=== PATIENT | male | born 1965 | race Caucasian/White ===

== ENCOUNTER → 2024-02-03 09:34 | Outpatient (REF) | payer BC, SELFPAY ==
[2024-02-03 10:29] LABS: % Basophils 0.7 % (0-2); % Eosinophils 2.5 % (0-6); % Immature Granulocytes 0.3 % (0-0.5); % Lymphocytes 14.3 % (20.5-51.1); % Monocytes 10.5 % (1.7-9.3); % Neutrophils 71.7 % (42.2-75.2); Absolute Basophils 0.1 10^3/uL (0-0.2); Absolute Eosinophils 0.2 10^3/uL (0-0.7); Absolute Monocytes 0.7 10^3/uL (0.1-0.6); Absolute Neutrophils 4.9 10^3/uL (1.4-6.5); Hematocrit 38.9 % (39.0-52.0); Hemoglobin 13.4 g/dL (13.0-18.0); Mean Corp Hgb Conc. 34.4 g/dL (33.0-37.0); Mean Corpuscular Hgb 32.4 pg (27.0-31.0); Nucleated Red Blood Cells % 0 % (-); Platelet Count 164 10^3/uL (130-400); Red Blood Cell Count 4.14 10^6/uL (4.70-6.10); Red Cell Dist. Width 13.2 % (11.5-14.5); White Blood Cell Count 6.8 10^3/uL (4.8-10.8)
[2024-02-03 10:42] LABS: ALT (SGPT) 42 U/L (0-50); AST (SGOT) 57 U/L (17-59); Albumin 4.2 g/dl (3.5-5.0); Alkaline Phosphatase 103 U/L (38-126); Blood Urea Nitrogen 11 mg/dl (9-20); Calcium 9.6 mg/dl (8.4-10.2); Carbon Dioxide 25 mmol/L (22-30); Chloride 99 mmol/L (98-107); Glucose 166 mg/dl (70-99); Potassium 3.8 mmol/L (3.5-5.1); Sodium 131 mmol/L (135-145); Total Bilirubin 0.6 mg/dl (0.2-1.3); Total Cholesterol 177 mg/dl (50-199); Triglyceride 308 mg/dl (10-149); Uric Acid 8.3 mg/dl (3.5-8.5); Very Low Density Lipoprotein 61 mg/dl (0-30); eGFR > 60.00
[2024-02-03 10:47] LABS: HDL Cholesterol 98 mg/dl; LDL Cholesterol, Calculated 18 mg/dl
== END ==
LOC: REG 09:34
PROVIDERS: ATTENDING PHYSICIAN Physician Assistant
DX: M10.9 Gout, unspecified (principal); I10 Essential (primary) hypertension; K21.9 Gastro-esophageal reflux disease without esophagitis; I42.2 Other hypertrophic cardiomyopathy; E78.1 Pure hyperglyceridemia
CPT/HCPCS: 36415; 80053; 80061; 84550; 85025

== ENCOUNTER → 2024-03-19 11:49 | Outpatient (REF) | payer BC, SELFPAY ==
[2024-03-19 13:37] LABS: PSA, Total - Diagnostic < 0.06 ng/ml (0.0-4.0)
== END ==
LOC: REG 11:49
PROVIDERS: ATTENDING PHYSICIAN Family Medicine Geriatric Medicine; FAMILY PHYSICIAN Physician Assistant
DX: C61 Malignant neoplasm of prostate (principal); Z79.818 Long term (current) use of other agents affecting estrogen receptors and estrogen levels
CPT/HCPCS: 36415; 84153; 84270; 84402; 84403

== ENCOUNTER → 2024-05-20 09:03 | Outpatient (REF) | payer BC, SELFPAY | LOC: RCS 09:03 | PROVIDERS: ATTENDING PHYSICIAN Internal Medicine Cardiovascular Disease; FAMILY PHYSICIAN Family Medicine | DX: I42.2 Other hypertrophic cardiomyopathy (principal); I10 Essential (primary) hypertension | CPT/HCPCS: 93306 ==

== ENCOUNTER → 2024-09-17 12:12 | Outpatient (REF) | payer BC, SELFPAY ==
[2024-09-17 15:10] LABS: PSA, Total - Diagnostic < 0.06 ng/ml (0.0-4.0)
== END ==
LOC: REG 12:12
PROVIDERS: ATTENDING PHYSICIAN Family Medicine Geriatric Medicine; FAMILY PHYSICIAN Physician Assistant
DX: C61 Malignant neoplasm of prostate (principal); Z79.818 Long term (current) use of other agents affecting estrogen receptors and estrogen levels
CPT/HCPCS: 36415; 84153; 84270; 84402; 84403

== ENCOUNTER → 2025-01-10 15:23 | Outpatient (REF) | payer BC, SELFPAY ==
[2025-01-10 16:22] LABS: ALT (SGPT) 41 U/L (0-50); AST (SGOT) 42 U/L (17-59); Albumin 4.4 g/dl (3.5-5.0); Alkaline Phosphatase 84 U/L (38-126); Blood Urea Nitrogen 15 mg/dl (9-20); Calcium 9.1 mg/dl (8.4-10.2); Carbon Dioxide 24 mmol/L (22-30); Chloride 105 mmol/L (98-107); Glucose 115 mg/dl (70-99); Potassium 3.7 mmol/L (3.5-5.1); Sodium 141 mmol/L (135-145); Total Bilirubin 0.6 mg/dl (0.2-1.3); Total Protein 6.9 g/dl (6.3-8.2); eGFR > 60.00
[2025-01-10 17:25] LABS: Urine Albumin Negative (Neg - Trace); Urine Bilirubin Negative (Negative); Urine Character Clear (Clear); Urine Color Yellow; Urine Glucose 1+ (Negative); Urine Ketone Negative (Negative); Urine Leukocyte Negative (Negative); Urine Nitrite Negative (Negative); Urine Occult Blood Negative (Negative); Urine Specific Gravity 1.015 (<1.030); Urine Urobilinogen Negative (Neg - 1+)
== END ==
LOC: REG 15:23
PROVIDERS: ATTENDING PHYSICIAN Specialist; FAMILY PHYSICIAN Family Medicine
DX: R31.9 Hematuria, unspecified (principal)
CPT/HCPCS: 36415; 80053; 81003

== ENCOUNTER → 2025-01-20 07:29 | Outpatient (REF) | payer BC, SELFPAY | LOC: RAD 07:29 | PROVIDERS: ATTENDING PHYSICIAN Specialist; FAMILY PHYSICIAN Family Medicine | DX: R31.9 Hematuria, unspecified (principal) | CPT/HCPCS: 74178; Q9967 ==

== ENCOUNTER 2025-02-20 06:22 | Day surgery (SDC) | payer BC, SELFPAY ==
[2025-02-17 10:29] VITALS: BMI 30.8
[2025-02-17 11:37] LABS: Hematocrit 39.6 % (39.0-52.0); Hemoglobin 14.1 g/dL (13.0-18.0); Mean Corp Hgb Conc. 35.6 g/dL (33.0-37.0); Mean Corpuscular Hgb 33.4 pg (27.0-31.0); Mean Corpuscular Volume 93.8 fL (80.0-94.0); Mean Platelet Volume 9.4 fL (7.4-10.4); Platelet Count 213 10^3/uL (130-400); Red Blood Cell Count 4.22 10^6/uL (4.70-6.10); Red Cell Dist. Width 12.7 % (11.5-14.5); White Blood Cell Count 6.3 10^3/uL (4.8-10.8)
[2025-02-20] VITALS (10 sets, daily range): BP systolic 102–145; BP diastolic 72–91; BMI 31.7
[2025-02-20] MEDS: NORMOSOL-R/PLASMALYTE-A 1000 IV (11:03)
[2025-02-20] MEDS: DETROL LA 4 MG PO (14:33)
== END 2025-02-20 16:30 | disposition home or self-care (01) ==
LOC: SDS 06:22
PROVIDERS: ATTENDING PHYSICIAN Specialist; FAMILY PHYSICIAN Physician Assistant
DX: N32.0 Bladder-neck obstruction (principal); N30.41 Irradiation cystitis with hematuria; N35.919 Unspecified urethral stricture, male, unspecified site; Y84.2 Radiological procedure and radiotherapy as the cause of abnormal reaction of the patient, or of later complication, without mention of misadventure at the time of the procedure
CPT/HCPCS: 52354; 36415; 74018; 76000; 85027; 93005

== ENCOUNTER → 2025-05-26 12:12 | Outpatient (REF) | payer BC, SELFPAY ==
[2025-05-26 14:02] LABS: PSA, Total - Diagnostic < 0.06 ng/ml (0.0-4.0)
== END ==
LOC: REG 12:12
PROVIDERS: ATTENDING PHYSICIAN Specialist; FAMILY PHYSICIAN Family Medicine
DX: C61 Malignant neoplasm of prostate (principal)
CPT/HCPCS: 36415; 84153

== ENCOUNTER → 2025-06-06 08:25 | Outpatient (REF) | payer BC, SELFPAY | LOC: RAD 08:25 | PROVIDERS: ATTENDING PHYSICIAN Surgery; FAMILY PHYSICIAN Family Medicine | DX: Z01.818 Encounter for other preprocedural examination (principal) | CPT/HCPCS: 71046 ==

== ENCOUNTER → 2025-09-16 08:20 | Outpatient (REF) | payer BC, SELFPAY ==
[2025-09-16 09:45] LABS: Microalbumin, Random Urine 1.4 mg/dl (0.6-1.7)
[2025-09-16 10:01] LABS: ALT (SGPT) 45 U/L (0-50); AST (SGOT) 76 U/L (17-59); Albumin 4.0 g/dl (3.5-5.0); Alkaline Phosphatase 93 U/L (38-126); Blood Urea Nitrogen 8 mg/dl (9-20); Calcium 8.5 mg/dl (8.4-10.2); Carbon Dioxide 28 mmol/L (22-30); Chloride 104 mmol/L (98-107); Glucose 124 mg/dl (70-99); HDL Cholesterol 60 mg/dl; Potassium 3.5 mmol/L (3.5-5.1); Sodium 136 mmol/L (135-145); Total Protein 6.8 g/dl (6.3-8.2); eGFR > 60.00
[2025-09-16 10:38] LABS: LDL Cholesterol, Direct 43 mg/dl
[2025-09-16 10:42] LABS: Glycohemoglobin (HgbA1c) 6.1 % (4.0-5.9)
== END ==
LOC: REG 08:20
PROVIDERS: ATTENDING PHYSICIAN Family Medicine
DX: K21.9 Gastro-esophageal reflux disease without esophagitis (principal); I42.2 Other hypertrophic cardiomyopathy; E11.65 Type 2 diabetes mellitus with hyperglycemia; F10.10 Alcohol abuse, uncomplicated; K76.0 Fatty (change of) liver, not elsewhere classified
CPT/HCPCS: 36415; 80053; 80061; 82043; 82570; 83036; 83721

== ENCOUNTER → 2025-09-30 10:58 | Outpatient (REF) | payer BC, SELFPAY ==
[2025-09-30 13:06] LABS: PSA, Total - Diagnostic < 0.06 ng/ml (0.0-4.0)
== END ==
LOC: REG 10:58
PROVIDERS: ATTENDING PHYSICIAN Family Medicine Geriatric Medicine
DX: C61 Malignant neoplasm of prostate (principal)
CPT/HCPCS: 36415; 84153